=== PATIENT | female | born 1985 | race Caucasian/White ===

== ENCOUNTER 2016-09-16 13:35 | Emergency (ER) | payer MEDICAID ==
[~2016-09-16] VITALS: Ht 170.2 cm; Wt 79.4 kg
[~2016-09-16 13:35] MED LIST: FERR-193 PO; LACT10SO1 PO
[2016-09-16 13:59] VITALS: BP 104/61
--- NOTE | 2016-09-16 17:33 | NUR ---
PATIENT TO BED 5 AT THIS TIME.
--- NOTE | 2016-09-16 17:35 | NUR ---
31/F BIB SELF FOR HEADACE, WEAKNESS AND BLURRY VISION X 1 DAY.PATIENT DENIES N/V/D; SKIN IS PINK/WARM/DRY; AAOX4 WITH EVEN AND STEADY GAIT; LUNGS CLEAR BL; HR EVEN AND REGULAR; PT DENIES ANY FEVER, CP, SOB, OR COUGH AT THIS TIME; PATIENT STATES PAIN OF 8/10 AT THIS TIME; PATIENT POSITIONED FOR COMFORT; HOB ELEVATED; BEDRAILS UP X2; BED DOWN. ER MD MADE AWARE OF PT STATUS.
[2016-09-16] MEDS ORDERED: NACL 0.9% 1,000 ML IV ONE (17:55)
[2016-09-16] MEDS ORDERED: SUMAtriptan 6 MG/0.5 ML VIAL SUBQ ONE (17:55)
[2016-09-16] MEDS ORDERED: diphenhydrAMINE 50 MG/ML VIAL IVP ONE (17:55)
[2016-09-16] MEDS ORDERED: PROCHLORPERAZINE 10 MG/2 ML VIAL IVP ONE (17:55)
--- NOTE | 2016-09-16 19:14 | NUR ---
Patient discharged with v/s stable. Written and verbal after care instructions given and explained. Patient alert, oriented and verbalized understanding of instructions. Ambulatory with steady gait. All questions addressed prior to discharge. ID band removed. Patient advised to follow up with PMD. Rx of IMITREX 25 MG given. Patient educated on indication of medication including possible reaction and side effects. Opportunity to ask questions provided and answered.
[2016-09-16 19:15] VITALS: BP 110/76
== END 2016-09-16 19:14 | disposition home or self-care (01) ==
LOC: MED 13:35
DX: G43.909 Migraine, unspecified, not intractable, without status migrainosus (principal); D64.9 Anemia, unspecified; Z88.0 Allergy status to penicillin; Z91.018 Allergy to other foods
CPT/HCPCS: 81002; 81025; 96361; 96372; 96374; 96375; 99284; J0780; J1200; J3030; J7030

== ENCOUNTER 2018-06-15 19:20 | Emergency (ER) | payer MEDICAID ==
[~2018-06-15] VITALS: Ht 162.6 cm; Wt 83.5 kg
[~2018-06-15 19:20] MED LIST changes: +DOCU-299 PO; +FERR-15 PO; -FERR-193 PO; -LACT10SO1 PO
--- NOTE | 2018-06-15 19:25 | NUR ---
Yasmeen caba in [facility] - 06/15/18 at 1931 by HOLLIS PT TAKEN TO [facility]
--- NOTE | 2018-06-15 19:39 | NUR ---
PT TAKEN TO BED 8
[2018-06-15 19:40] VITALS: BP 132/73
--- NOTE | 2018-06-15 19:40 | NUR ---
PATIENT PRESENTS TO ED WITH C/O COUGH AND FEVER SINCE WEDNESDAY. PT STATES SHE WENT TO HER PCP. SKIN IS PINK/WARM/DRY; AAOX4 WITH EVEN AND STEADY GAIT; PATIENT STATES PAIN OF 10/10 AT THIS TIME; PATIENT POSITIONED FOR COMFORT; HOB ELEVATED; BEDRAILS UP X2; BED DOWN. ER MD MADE AWARE OF PT STATUS.
[2018-06-15] MEDS ORDERED: ACETAMINOPHEN EXTRA STRENGTH 500 MG TAB ONE (19:45)
[2018-06-15] MEDS ORDERED: ACETAMINOPHEN EXTRA STRENGTH 500 MG TAB PO ONE (19:50)
--- NOTE | 2018-06-15 20:07 | NUR ---
Dr. Leavitt evaluating patient at bedside.
--- NOTE | 2018-06-15 20:49 | NUR ---
Patient discharged with v/s stable. Written and verbal after care instructions given and explained. Patient alert, oriented and verbalized understanding of instructions. Ambulatory with steady gait. All questions addressed prior to discharge. ID band removed. Patient advised to follow up with PMD. Rx of IBUPROFEN AND TAMIFLU given. Patient educated on indication of medication including possible reaction and side effects. Opportunity to ask questions provided and answered.
== END 2018-06-15 20:49 | disposition home or self-care (01) ==
LOC: MED 19:20
DX: J10.1 Influenza due to other identified influenza virus with other respiratory manifestations (principal); Z88.0 Allergy status to penicillin; Z91.018 Allergy to other foods; Z79.899 Other long term (current) drug therapy
CPT/HCPCS: 36415; 81002; 81025; 87804; 99283

== ENCOUNTER 2021-01-17 15:04 | Emergency (ER) | payer SELFPAY ==
[~2021-01-17] VITALS: Ht 172.7 cm; Wt 83.9 kg
[2021-01-17 16:32] VITALS: BP 108/67
[2021-01-17 17:10] LABS: BASOPHILS % (AUTO) 0.3 % (0.0-2.0); EOSINOPHILS # (AUTO) 0.2 K/uL (0-0.4); EOSINOPHILS % (AUTO) 1.8 % (0.0-4.0); HEMATOCRIT 28.5 % (36-48); HEMOGLOBIN 8.4 g/dL (12.0-16.0); LYMPHOCYTES # (AUTO) 0.8 K/uL (2.5-16.5); LYMPHOCYTES % (AUTO) 7.6 % (20.5-51.1); MEAN CORPUSCULAR HEMOGLOBIN 18 pg (27-31); MEAN CORPUSCULAR HGB CONC 29 g/dL (33-37); MEAN CORPUSCULAR VOLUME 61.3 fL (80-94); MONOCYTES # (AUTO) 0.2 K/uL (0.8-1.0); MONOCYTES % (AUTO) 1.7 % (1.7-9.3); NEUTROPHILS # (AUTO) 8.7 K/uL (1.8-7.7); NEUTROPHILS % (AUTO) 88.6 % (42.2-75.2); PLATELET COUNT (AUTO) 428 K/uL (140-450); RED BLOOD CELL COUNT(AUTO) 4.64 MIL/uL (4.20-5.40); RED CELL DISTRIBUTION WIDTH 19.4 % (11.6-13.7); WHITE BLOOD COUNT (AUTO) 9.8 K/uL (4.8-10.8)
[2021-01-17 17:22] LABS: PROTHROMBIN TIME 10.1 secs (10.8-13.4)
[2021-01-17 17:26] LABS: ALBUMIN 4.4 g/dL (3.4-5.0); ANION GAP 11.6 (8-16); CARBON DIOXIDE 28.5 mmol/L (21-32); CREATININE 0.6 mg/dL (0.6-1.3); POTASSIUM 4.1 mmol/L (3.5-5.1); TOTAL BILIRUBIN 0.4 mg/dL (0.0-1.0)
--- NOTE | 2021-01-17 18:10 | NUR ---
NO NEED NURSING INTERVENTIONS, SEEN & TREATED BY ANISHA NIÑO.
--- NOTE | 2021-01-17 18:13 | NUR ---
Patient discharged with v/s stable. Written and verbal after care instructions given and explained. Patient verbalized understanding. Ambulatory with steady gait. All questions addressed prior to discharge. Advised to follow up with PMD.
[2021-01-17 18:15] VITALS: BP 108/67
== END 2021-01-17 18:13 | disposition home or self-care (01) ==
LOC: MED 15:04
DX: D64.9 Anemia, unspecified (principal); R42 Dizziness and giddiness; R00.2 Palpitations; Z88.0 Allergy status to penicillin; Z91.018 Allergy to other foods; Z79.899 Other long term (current) drug therapy
CPT/HCPCS: 36415; 80053; 81025; 85025; 85610; 85730; 86886; 86900; 86901; 99283